=== PATIENT | male | born 1995 | race Caucasian/White ===

== ENCOUNTER 2017-05-02 19:51 | Emergency (ER) | payer MEDICAID ==
[~2017-05-02] VITALS: Ht 177.8 cm; Wt 129.4 kg
[2017-05-02 19:53] VITALS: BP 147/93
== END 2017-05-02 20:52 | disposition home or self-care (01) ==
LOC: ED 20:30
DX: T63.301A Toxic effect of unspecified spider venom, accidental (unintentional), initial encounter (principal); Y92.9 Unspecified place or not applicable
CPT/HCPCS: 99281

== ENCOUNTER 2020-06-15 14:51 | Emergency (ER) | payer MEDICAID ==
[~2020-06-15] VITALS: Ht 185.4 cm; Wt 145.0 kg
--- NOTE | 2020-06-15 15:18 | NUR ---
SPORTS MANAGEMENT PROFESSOR AT BEDSIDE FOR EVAL.
--- NOTE | 2020-06-15 15:39 | NUR ---
ALL BELONGINGS REMOVED, BAGGED TAGGED AND PLACED IN PSYCH LOCKER IN APPROPRIATE BIN. L2K PROCESS EXPLAINED TO PT, PT VERBALIZES UNDERSTANDING. SITTER CONTINUES IN DIRECT LINE OF SIGHT.
[2020-06-15 16:07] LABS: BASOPHILS # (AUTO) 0.05 x10^3/uL (0-0.1); BASOPHILS % (AUTO) 0 % (0-1); EOSINOPHILS # (AUTO) 0.02 x10^3/uL (0-0.4); EOSINOPHILS % (AUTO) 0 % (1-7); LYMPHOCYTES # (AUTO) 1.69 x10^3/uL (1-3.4); LYMPHOCYTES % (AUTO) 14 % (22-44); MD NO; MEAN CORPUSCULAR HEMOGLOBIN 30.4 pg (27.5-34.5); MEAN CORPUSCULAR HGB CONC 33.1 g/dL (33.2-36.2); MEAN CORPUSCULAR VOLUME 91.8 fL (81-97); MEAN PLATELET VOLUME 8.3 fL (7.4-10.4); MONOCYTES # (AUTO) 0.87 x10^3/uL (0.2-0.8); MONOCYTES % (AUTO) 7 % (2-9); NEUTROPHILS # (AUTO) 9.51 x10^3/uL (1.8-6.8); NEUTROPHILS % (AUTO) 78 % (42-75); PLATELET COUNT 252 x10^3/uL (130-400); RED BLOOD COUNT 4.84 x10^6/uL (4.38-5.82); RED CELL DISTRIBUTION WIDTH 13.7 % (9.4-14.8)
[2020-06-15 16:18] LABS: ALBUMIN 4.1 g/dL (3.4-5.0); ANION GAP 6 mmol/L (5-15); CHLORIDE 108 mmol/L (98-107); CREATININE 0.85 mg/dL (0.7-1.3)
[2020-06-15 16:19] LABS: SALICYLATE LEVEL < 1.7 mg/dL (2.8-20.0)
--- NOTE | 2020-06-15 17:54 | NUR ---
PT NOTED BY SITTER TO BE REPEATEDLY MESSING WITH THE GARAGE DOORS. PT EDUCATED ON WHY THEY ARE IN PLACE, AND REMINDED THAT HE IS NOT TO TAMPER WITH THE SAFETY EQUIPMENT. PT AGREEABLE. APPLICATION DEVELOPMENT PROJECT MANAGER NOTIFIED FOR EXTRA EYES ON PATIENT. SITTER CONTINUES IN DIRECT LINE OF SIGHT.
--- NOTE | 2020-06-15 20:48 | NUR ---
PT STANDING IN ROOM, DENIES ANY NEEDS. SITTER CONTINUES IN DIRECT LINE OF SIGHT.
[2020-06-15] MEDS ORDERED: QUETIAPINE 100MG TABLET PO SCH (21:00)
--- NOTE | 2020-06-15 21:57 | NUR ---
Awaiting for LOKESH to fax psych packet.
--- NOTE | 2020-06-15 22:29 | NUR ---
PT PROVIDED URINE SAMPLE. COLLECTED AND SENT TO LAB. DENIES ANY FURTHER NEEDS OR CONCERNS. SITTER REMAINS IN DIRECT LINE OF SIGHT.
[2020-06-15 22:58] LABS: AMPHETAMINE SCREEN, URINE Negative (Negative); BARBITURATE SCREEN, URINE Negative (Negative); BENZODIAZEPINE SCREEN, URINE Negative (Negative); CANNABINOID SCREEN, URINE Positive (Negative); COCAINE SCREEN, URINE Negative (Negative); METHADONE SCREEN, URINE Negative (Negative); OPIATE SCREEN, URINE Negative (Negative)
[2020-06-15] MEDS ORDERED: QUETIAPINE 100MG TABLET ONE (23:12)
--- NOTE | 2020-06-16 00:10 | NUR ---
PT SITTING ON EDGE OF BED, PT ROOM IS SI SECURE WITH SITTER AT PT DOOR. RN WILL CONTINUE TO MONITOR PT. PT DENIED ANY WANTS OR NEEDS AT THIS TIME. PT MEDICATED PER EMAR.
[2020-06-16 00:11] VITALS: BP 136/86
--- NOTE | 2020-06-16 00:29 | NUR ---
PT SATANDING AT DOOR AND PARINOID OF SITTER, PT SAID HE NEEDED FRESH AIR AND TRIED TO LEAVE TO 2 DIFFERENT EXITS WITH SITTER TRYING TO DIRRECT PT BACK TO ROOM. SECRURITY HAD TO TALK PT BACK TO ROOM AND BED. PROVIDER NOTIFIED. PT MEDICATED PER EMAR
--- NOTE | 2020-06-16 00:34 | NUR ---
TP: faxed packet to [facility], [facility], [facility], [facility].
[2020-06-16] MEDS ORDERED: ZIPRASIDONE 20 MG INJ IM ONE ×2 (00:42→01:00)
--- NOTE | 2020-06-16 01:05 | NUR ---
THELMA LOBO CALLED FOR A REPORT TO SEE IF TIER MD WILL ACCEPT PT.
--- NOTE | 2020-06-16 01:26 | NUR ---
Reed from [facility]: accepted to [facility]. Accepting doctor is Dr. Lazo.
--- NOTE | 2020-06-16 01:54 | NUR ---
U refused referral; U at capacity.
--- NOTE | 2020-06-16 03:58 | NUR ---
PT RESTING IN BED, PT ROOM IS SI SECURE WITH SITTER AT PT DOOR. RN WILL CONTINUE TO MONITOR PT. PT DENIED ANY WANTS OR NEEDS AT THIS TIME. PT MEDICATED PER EMAR.
--- NOTE | 2020-06-16 04:25 | NUR ---
PT CARE TRAMSFERED TO [facility] FOR TRANSPORT TO [facility]
== END 2020-06-16 04:27 ==
LOC: ED 15:25
DX: F23 Brief psychotic disorder (principal); F22 Delusional disorders
CPT/HCPCS: 36415; 80048; 80307; 82040; 85025; 96372; 99285; J3486

== ENCOUNTER 2020-12-09 13:56 | Emergency (ER) | payer MEDICAID ==
[~2020-12-09] VITALS: Ht 177.8 cm; Wt 100.0 kg
[2020-12-09 14:21] VITALS: BP 136/87
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
[2020-12-09 14:22] LABS: BASOPHILS % (AUTO) 1 % (0-1); EOSINOPHILS % (AUTO) 0 % (1-7); LYMPHOCYTES % (AUTO) 19 % (22-44); MEAN CORPUSCULAR HEMOGLOBIN 30.4 pg (27.5-34.5); MEAN PLATELET VOLUME 8.6 fL (7.4-10.4); MONOCYTES % (AUTO) 9 % (2-9); NEUTROPHILS % (AUTO) 71 % (42-75); PLATELET COUNT 283 x10^3/uL (130-400); RED BLOOD COUNT 5.55 x10^6/uL (4.38-5.82); RED CELL DISTRIBUTION WIDTH 13.7 % (9.4-14.8)
[2020-12-09 14:23] LABS: MD NO
[2020-12-09 14:31] LABS: ANION GAP 9 mmol/L (5-15); CALCIUM 8.8 mg/dL (8.5-10.1); CHLORIDE 107 mmol/L (98-107)
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
[2020-12-09 14:47] LABS: AMPHETAMINE SCREEN, URINE Positive (Negative); BARBITURATE SCREEN, URINE Negative (Negative); BENZODIAZEPINE SCREEN, URINE Negative (Negative); CANNABINOID SCREEN, URINE Positive (Negative); COCAINE SCREEN, URINE Negative (Negative); METHADONE SCREEN, URINE Negative (Negative); OPIATE SCREEN, URINE Negative (Negative)
[2020-12-09 14:58] LABS: SALICYLATE LEVEL < 1.7 mg/dL (2.8-20.0)
--- NOTE | 2020-12-09 15:00 | NUR ---
Meal tray provided, safety precautions in place.
[2020-12-09] MEDS ORDERED: QUETIAPINE 100MG TABLET PO ONE (15:30)
[2020-12-09] MEDS ORDERED: QUETIAPINE 100MG TABLET ONE (15:34)
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
--- NOTE | 2020-12-09 15:42 | NUR ---
Santi TO DECLINE PT. ALL APPROPRIATE DOCUMENTAION SENT TO LUBNA LOPEZ, HERIBERTO PERDUE
--- NOTE | 2020-12-09 16:10 | NUR ---
SBAR TELEPHONE REPORT GIVEN TO MICAH LUCIO AT [facility].
--- NOTE | 2020-12-09 17:34 | NUR ---
PT RESTING ON GURNEY WITH NO COMPLAINTS. PT REMAINS UNDER CONSTANT SUPERVISION BY SITTER AND REMAINS SAFE.
[2020-12-09] MEDS ORDERED: QUETIAPINE 100MG TABLET PO SCH (21:00)
== END 2020-12-09 18:45 | disposition home or self-care (01) ==
LOC: ED 17:04
DX: F15.151 Other stimulant abuse with stimulant-induced psychotic disorder with hallucinations (principal); F12.10 Cannabis abuse, uncomplicated; R44.0 Auditory hallucinations; F17.200 Nicotine dependence, unspecified, uncomplicated
CPT/HCPCS: 36415; 80048; 80299; 80307; 80329; 82040; 85025; 99283; G0480